=== PATIENT | female | born 1980 | race Caucasian/White ===

== ENCOUNTER 2018-06-16 18:22 | Emergency (ER) | payer BC ==
[~2018-06-16] VITALS: Ht 162.6 cm; Wt 73.9 kg
[2018-06-16 18:55] VITALS: BP_SYST 121
--- NOTE | 2018-06-16 19:05 | NUR ---
Patient triaged and placed in waiting room. VSS and patient appears in no acute distress at this time. Accompanied by self, awaiting available bed, and MD notified of need for MSE.
--- NOTE | 2018-06-16 19:05 | NUR ---
Patient also reports that the light bothers her eyes, patient also states that she has blurred vision, and double vision. Was seen 2 weeks ago by eye doctor and told that she has swelling to the optic nerve.
--- NOTE | 2018-06-16 19:40 | NUR ---
Pt placed to ER bed 03. Pt c/o intermittent Left frontal H/A that starts from posterior head and shoot to front. +Nausea, +dizziness. Pt states pain radiates to her jaw and also causes pain to left eye. Pt states that s/s has been ongoing x 2 weeks. Was seen by PMD and referred to Opthamologist and was told she has swelling around left optic nerve, blurriness to affected eye. 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
--- NOTE | 2018-06-16 19:55 | NUR ---
Dr. Martínez at bedside.
--- NOTE | 2018-06-16 20:05 | NUR ---
# 20 gauge angiocath placed to RAC. Use of asceptic technique. Opsite placed over site. Blood return noted. Blood for lab drawn from site. Flushed with 10 cc of normal saline. No evidence of infiltration noted. Patient tolerated well.
[2018-06-16] MEDS ORDERED: DIPHENHYDRAMINE INJ 50 MG/ML VIAL IVP ONE (20:15)
[2018-06-16] MEDS ORDERED: MORPHINE 4 MG/ML INJ. SYRINGE IVP ONE (20:15)
[2018-06-16] MEDS ORDERED: ONDANSETRON HCL 4 MG/2 ML VIAL IVP ONE (20:15)
[2018-06-16 20:25] LABS: EOSINOPHILS # (AUTO) 0.1 K/uL (0.0-0.4); MEAN CORPUSCULAR HEMOGLOBIN 20 pg (27-31); MONOCYTES # (AUTO) 0.4 K/uL (0.0-1.0)
[2018-06-16 20:28] LABS: BASOPHILS % (AUTO) 0.9 % (0.0-2.0); EOSINOPHILS % (AUTO) 1.4 % (0.0-4.0); HEMATOCRIT 31.9 % (36-48); HEMOGLOBIN 9.6 g/dL (12.0-16.0); LYMPHOCYTES % (AUTO) 44.6 % (20.5-51.5); MEAN CORPUSCULAR HGB CONC 30 % (32-36); MEAN CORPUSCULAR VOLUME 68 fL (79.0-98.0); MONOCYTES % (AUTO) 8.6 % (1.7-9.3); NEUTROPHILS # (AUTO) 2.1 K/uL (1.8-7.7); NEUTROPHILS % (AUTO) 44.5 % (40.0-70.0); PLATELET COUNT (AUTO) 306 K/uL (130-430); RED BLOOD CELL COUNT(AUTO) 4.72 MIL/uL (4.2-6.2); RED CELL DISTRIBUTION WIDTH 19.1 % (9.0-15.0); WHITE BLOOD COUNT (AUTO) 4.6 K/uL (4.8-10.8)
[2018-06-16 20:33] LABS: CALCIUM 9.4 mg/dL (8.4-11.0); CREATININE 0.68 mg/dL (0.55-1.30); POTASSIUM 4.1 mmol/L (3.5-5.1)
[2018-06-16 20:38] LABS: ALBUMIN 3.8 g/dL (3.4-4.8); TOTAL BILIRUBIN 0.2 mg/dL (0.0-1.0)
--- NOTE | 2018-06-16 21:30 | NUR ---
States headache has improved. No needs verbalized at this time.
[2018-06-16 21:40] LABS: BILIRUBIN,URINE NEGATIVE (NEGATIVE); BLOOD, URINE NEGATIVE (NEGATIVE); COLOR,URINE YELLOW (YELLOW); GLUCOSE,URINE NEGATIVE (NEGATIVE); KETONES,URINE NEGATIVE (NEGATIVE); LEUKOCYTE ESTERASE ,URINE TRACE (NEGATIVE); NITRITE, URINE POSITIVE (NEGATIVE); PH,URINE 5.5 (5.0-8.0); PROTEIN URINE NEGATIVE (NEGATIVE); UROBILINOGEN,URINE 0.2 (0.2-1.0)
[2018-06-16 21:54] LABS: CLARITY/URINE SLIGHTLY CLOUDY (CLEAR)
[2018-06-16 23:05] LABS: BACTERIA,URINE MANY /HPF (None Seen); MUCUS,URINE None Seen /LPF (None Seen)
--- NOTE | 2018-06-16 23:30 | NUR ---
Resting quietly, easily awakened. Denies c/o pain or discomfort and no needs verbalized.
[2018-06-17 01:00] VITALS: BP_SYST 116
--- NOTE | 2018-06-17 01:00 | NUR ---
Patient given written and verbal discharge instructions and verbalizes understanding. ER MD discussed with patient the results and treatment provided. Patient in stable condition. ID arm band removed. IV catheter removed intact and dressing applied, no active bleeding. Rx of Keflex, Zofran, Tylenol given. Patient educated on pain management and to follow up with PMD. Pain Scale 2/10. Opportunity for questions provided and answered. Medication side effect fact sheet provided.
== END 2018-06-17 01:00 | disposition home or self-care (01) ==
LOC: SED 18:22
DX: G43.B0 Ophthalmoplegic migraine, not intractable (principal); M54.2 Cervicalgia; R07.89 Other chest pain; R03.0 Elevated blood-pressure reading, without diagnosis of hypertension; Z86.2 Personal history of diseases of the blood and blood-forming organs and certain disorders involving the immune mechanism; Z87.891 Personal history of nicotine dependence
CPT/HCPCS: 36415; 80053; 81000; 81025; 85025; 87086; 87186; 96374; 96375; 99284; J1200; J2270; J2405